=== PATIENT | male | born 1990 | race Caucasian/White ===

== ENCOUNTER 2017-03-11 09:05 | Emergency (ER) | payer MEDICAID ==
[2017-03-11 09:09] VITALS: BP 142/82; PULSE 76; RESP 16; TEMP 98.2; O2SAT 96
[2017-03-11] MEDS ORDERED: TDAP ADULT 0.5 ML INJ (BOOSTRIX) IM ONE ×2 (09:16→09:32)
--- NOTE | 2017-03-11 09:30 | EDPHY ---
H & P Stated Complaint: stepped on sara nail, 03/10/17, puncture to right foot. HPI/ROS: Chief complaint: Stepped on nail History of present illness: This is a 26-year-old male who presents to the emergency department stating he stepped on a sara nail. He was wearing socks but not shoes. He was able to remove the nail though he felt it went in almost all the way and is approximately an inch long. Minimal pain. He is still ambulating well. No report of associated signs or symptoms including no difficulty moving the toes or ankle, no redness, swelling, warmth or pustular discharge from the wound, no abnormal paresthesias or coolness in the foot. His tetanus is not up-to-date. - Personal History Current Tetanus Diphtheria and Acellular Pertussis (TDAP): Unsure - Medical/Surgical History Hx Asthma: No Hx Chronic Respiratory Disease: No Hx Diabetes: No Hx Cardiac Disease: No Hx Renal Disease: No Hx Cirrhosis: No Hx Alcoholism: No Hx HIV/AIDS: No Hx Splenectomy or Spleen Trauma: No Other PMH: Lyme Dz. - Social History Smoking Status: Current some day smoker - Physical Exam Exam: General: Alert, nontoxic Skin: There is a very small puncture wound to the plantar surface of the right foot. Musculoskeletal: He is moving all digits in the right foot without difficulty. He is moving the right ankle well without difficulty. He is ambulating well. Vascular: DP and PT pulses 2+. Capillary refill brisk in the right foot. Neurologic: Sensation intact throughout the right foot. Constitutional: Initial Vital Signs Temperature (C) 36.8 C 03/11/17 09:05 Heart Rate 76 03/11/17 09:05 Respiratory Rate 16 03/11/17 09:05 Blood Pressure 142/82 H 03/11/17 09:05 O2 Sat (%) 96 03/11/17 09:05 O2 Delivery Mode Room Air Allergies/Adverse Reactions: flaxseed Allergy (Intermediate, Verified 02/03/15 03:16) gluten Allergy (Intermediate, Verified 02/03/15 03:16) Home Medications: Medication Instructions Recorded Ambien 02/03/15 traZODONE 100MG (RX) 02/03/15 Cephalexin [Keflex (*)] 500 mg PO QID 7 Days cap 03/11/17 Medical Decision Making - Diagnostics Imaging: I viewed and interpreted images myself ED Course/Re-evaluation: Patient seen under the supervision of my secondary supervising physician Dr. Laura Paredes. Patient presents to the emergency department for puncture wound to the right foot. No evidence infection at this time. I recommended anesthetization of the site for wound irrigation, he declined. X- rays obtained. There is concern for fracture. His tetanus is updated. I have prescribed Keflex. However, he eloped from the emergency department before getting his prescription. He was called at home and asked to come back and get the prescription and a postop shoe so he can follow up with Orthopedics. He declined to the charge nurse stating he will treat naturally. Differential Diagnosis: Included but not limited to puncture wound, retained foreign body, deep structure injury - Data Points Medications Given: Discontinued Medications Diphtheria/Tetanus/Acell Pertussis (Boostrix) 0.5 ml IM .ONCE ONE Stop: 03/11/17 09:33 Last Admin: 03/11/17 09:38 Dose: 0.5 ml Departure - Departure Disposition: Against Medical Advice Clinical Impression: Puncture wound Condition: Good Instructions: Puncture Wound (ED) Additional Instructions: Please follow-up with your primary care doctor in 2 days for recheck If symptoms worsen or new symptoms develop including increasing pain, redness, swelling, warmth, pustular discharge, fever or other signs or symptoms return to the emergency room for recheck Referrals: Bess Barrera MD [Primary Care Provider] - As per Instructions Prescriptions: Cephalexin [Keflex (*)] 500 mg PO QID 7 Days cap
== END 2017-03-11 10:08 | disposition left against medical advice (07) ==
DX: S91.331A Puncture wound without foreign body, right foot, initial encounter (principal); F17.200 Nicotine dependence, unspecified, uncomplicated; Z23 Encounter for immunization; W45.0XXA Nail entering through skin, initial encounter